=== PATIENT | male | born 1960 | race Caucasian/White ===

== ENCOUNTER 2021-11-18 08:46 | Emergency (ER) | payer MEDICARE, SELFPAY ==
[2021-11-18 08:48] VITALS: BP 195/72; PULSE 88; RESP 16; TEMP 36.4; O2SAT 98; BMI 44.4
[2021-11-18] MEDS: Lidocaine 1% (20 ml mdv) 20 ML Vial INFILT (09:11)
--- NOTE | 2021-11-18 09:33 | CT_ITS ---
EXAM: CT HEAD WITHOUT INTRAVENOUS CONTRAST CLINICAL INDICATION: abscess TECHNIQUE: Multiple axial images were obtained of the head without intravenous contrast. This CT exam was performed using one or more of the following dose reduction techniques: automated exposure control, adjustment of the mA and/or kV according to patient size, and/or use of iterative reconstruction technique. This report was created using [employer] ([employer] report generation technology. COMPARISON: None. FINDINGS: BRAIN AND EXTRA-AXIAL SPACES: Unremarkable. No intra- or extra-axial hemorrhage. No evidence of acute infarct. No intracranial mass or mass effect. There is preservation of the peoples/white matter interface. Posterior fossa structures are unremarkable. Ventricles are appropriate for age. No hydrocephalus. Basal cisterns are patent. BONES/JOINTS: Unremarkable. No discrete lytic or blastic abnormalities. SINUSES: Unremarkable as visualized. Clear. MASTOID AIR CELLS: Unremarkable. Clear. ORBITS: Visualized globes, extraocular muscles, optic nerves and retrobulbar fat appear unremarkable. CT/Brain/Head without Contrast IMPRESSION: Negative head/brain CT without intravenous contrast. Electronically Signed: Lyle Duff MD at 11:39 EDT ,
--- NOTE | 2021-11-18 09:41 | EX.ED.DYSGE1 ---
HPI History of Present Illness Chief Complaint: Abscess Narrative Narrative: Patient presents with a scalp abscess, its been ongoing for at least a week, apparently drained on its own and then he had it drained at an urgent care and placed on doxycycline. It has not reaccumulated. He has no fevers chills cough or congestion, he is a diabetic and he does not know how his blood sugars are running since he has not checked his blood sugar in a few weeks. PFSH PFSH Medical History no medical history Home Medications clindamycin HCl 150 mg capsule 300 mg PO 4X/DAY #56 caps 11/18/21 [Rx Last Taken Unknown] doxycycline hyclate 100 mg tablet 100 mg PO BID 11/18/21 [History Last Taken Unknown] Allergy/AdvReac Type Severity Reaction Status Date / Time No Known Allergies Allergy Verified 11/18/21 09:10 Social History Smoking Status: Unknown if ever smoked ROS ROS ED ROS Narrative Past medical history: Reviewed Medications: Reviewed Social history: Noncontributory Review of systems: All systems negative except as indicated General: No fever Head: Scalp abscess Eyes: No visual changes ENT: No upper airway congestion, normal voice Neck: No neck pain Cardiovascular: No chest pain Respiratory: No shortness of breath or cough Gastrointestinal: No abdominal pain, nausea vomiting or diarrhea Genitourinary: No dysuria Musculoskeletal: Denies myalgias no difficulty with ambulation Skin: Scalp abscess Neurological: No memory loss, confusion or any focal weakness Psych: No recent behavioral changes Hematologic: No easy bleeding or easy bruising EXAM Physical Exam Narrative Exam Narrative: Physical exam General: Patient does not appear in significant distress Head: Normocephalic, posterior scalp shows a left-sided abscess it is about 10 x 5 cm. Eyes: Conjunctiva not pale ENT: Moist mucous membranes Neck: Supple, Nontender, No lymphadenopathy Cardiovascular: Regular rate, Regular rhythm Respiratory: No distress, CTA bilaterally Abdomen: Soft, Nontender, Nondistended Back: Nontender, Normal Inspection. Negative for: CVA tenderness Extremities: Nontender, No edema Skin: Normal color, No rash Neurological: Alert, Normal Strength, Normal Sensation Psychological: Normal affect Const Vital Signs: 11/18/21 08:48 Temperature 97.5 F L Temperature Source Temporal Pulse Rate 88 Respiratory Rate 16 Blood Pressure 195/72 H Blood Pressure Mean 113 Pulse Ox 98 Oxygen Delivery Method Room Air MDM MDM MDM Narrative Medical decision making narrative: Patient's work-up is unremarkable it appears as if I got most of the pus out on the CAT scan, I will discharge the patient with antibiotics, he is currently on doxycycline and will change to clindamycin he now has both wounds that are wide open and unlikely to close, I think the urgent care drain it uses a needle because I do not see any incision sites. Regardless if anything worsens he is to return and get admitted. Lab Data Labs: Laboratory Results - last 24 hr 11/18/21 11/18/21 09:55 09:55 WBC 5.6 RBC 4.73 Hgb 14.8 Hct 43.2 MCV 91.3 MCH 31.3 MCHC 34.3 RDW Std Deviation 41.8 RDW Coeff of Mattie 12.6 Plt Count 299 MPV 8.4 Immature Gran % (Auto) 0.700 Neut % (Auto) 51.2 Lymph % (Auto) 34.5 [place] % (Auto) 8.4 Eos % (Auto) 3.6 Baso % (Auto) 1.6 H Absolute Neuts (auto) 2.9 Absolute Lymphs (auto) 1.92 Nucleated RBC % 0 Sodium 135 L Potassium 4.4 Chloride 103 Carbon Dioxide 27.0 Anion Gap 5 BUN 18 Creatinine 1.07 Estim Creat Clear Calc 65.42 Est GFR (MDRD) Af Amer 90 Est GFR (MDRD) Non-Af 75 BUN/Creatinine Ratio 16.8 Glucose 323 H Calcium 10.0 Total Bilirubin 0.30 AST 20 ALT 27 Alkaline Phosphatase 95 Total Protein 7.1 Albumin 3.0 L Globulin 4.1 Albumin/Globulin Ratio 0.7 L Radiography Diagnostic Testing: Clinical Impression(s) from Imaging Studies Brain CT 11/18/21 09:33 IMPRESSION: Negative head/brain CT without intravenous contrast. Electronically Signed: Lyle Duff MD at 11:39 EDT , Procedures Other Procedures Procedure(s): Incision and drainage Verbal consent 1% lidocaine was used, about total of 4 mL I made 2 incisions 1 on the inferior and 1 on the superior side of the abscess, wounds were ellipsed with scissors. Copious amounts of pus was expectorated I irrigated the abscess. Patient tolerated procedure well. Discharge Plan Triage Chief Complaint: Abscess ED Provider: Trae Herrera Dx/Rx/DC Orders Clinical Impression: Abscess, Cellulitis Instructions: Abscess Drainage Prescriptions: New clindamycin HCl 150 mg capsule 300 mg PO 4X/DAY Qty: 56 0RF No Action doxycycline hyclate 100 mg Tablet 100 mg PO BID Primary Care Provider: Care Physician,No Primary Referrals: Care Physician,No Primary [Primary Care Provider] - 2 Days Activity Restrictions/Additional Instructions: Stop the doxycycline. Start clindamycin Disposition Disposition: Home, Self Care
[2021-11-18 10:12] LABS: Absolute Lymphocyte Count 1.92 X10^3/uL (0.83-4.51); Absolute Neutrophil Count 2.9 X10^3/uL (2.0-7.7); Basophil# 0.09 X10^3/uL; Basophil% 1.6 % (0-1); Eosinophils% 3.6 % (0-5); Hematocrit 43.2 % (40-54); Hemoglobin 14.8 g/dL (13.0-16.5); Lymphocyte # 1.92 X10^3/ul (0.83-4.51); Lymphocyte % 34.5 % (19-41); Mean Corp Hgb Conc 34.3 g/dL (32-36); Mean Corpuscular Hgb 31.3 pg (27.0-32.0); Mean Corpuscular Volume 91.3 fL (80-94); Mean Platelet Vol. 8.4 fl (6.2-12.0); Monocyte# 0.47 X10^3/uL; Monocyte% 8.4 % (0-10); NRBC Flagged by Analyzer 0 % (0-5); Neutrophil # 2.85 X10^3/uL (2.7-7.7); Neutrophil % 51.2 % (47-70); Platelet Count 299 K/mm3 (150-450); RBC Distribution Width CV 12.6 % (11.6-14.6); RBC Distribution Width SD 41.8 fl (35.1-43.9); Red Blood Count 4.73 M/mm3 (4.6-6.2); White Blood Count 5.6 K/mm3 (4.4-11.0)
--- NOTE | 2021-11-18 10:19 | NURSING ---
Contacted pharmacy for luli
[2021-11-18 10:32] LABS: ALB/GLOB Ratio 0.7 RATIO (0.9-2.4); AST(SGOT) 20 U/L (15-37); Alanine Aminotransfer ALT/SGPT 27 U/L (16-61); Alkaline Phosphatase 95 U/L (45-117); Anion Gap 5 (5-15); BUN 18 mg/dL (7-18); BUN/Creat Ratio 16.8 RATIO (10-20); Chloride 103 mmol/L (98-107); Creatinine, Serum 1.07 mg/dL (0.70-1.30); EST Glomerular Filtration Rate 75 mL/min (>60); Est Glom Filt Rate - Afr Amer 90 mL/min (>60); Estimated Creatinine Clearance 65.42 ml/min; Globulin 4.1 g/dL (2.2-4.2); Glucose 323 mg/dL (74-106); Potassium 4.4 mmol/L (3.5-5.1); Protein, Total 7.1 g/dL (6.4-8.2); Sodium Level 135 mmol/L (136-145)
[2021-11-18] MEDS: Clindamycin 600 MG/50 ML BAG 100 MG IV (10:36)
[2021-11-18 12:12] VITALS: BP 142/88; PULSE 87; RESP 16; O2SAT 99
== END 2021-11-18 12:17 | disposition home or self-care (01) ==
PROVIDERS: Emergency Provider Emergency Medicine; Visit Provider Emergency Medicine
DX: L02.811 Cutaneous abscess of head [any part, except face] (principal); E11.9 Type 2 diabetes mellitus without complications
CPT/HCPCS: 10060; 70450; 80053; 85025; 87040; 96365; 99283; J7050; A4216